=== PATIENT | female | born 1975 | race Caucasian/White ===

== ENCOUNTER 2024-05-12 20:26 | Emergency (ER) | payer MEDICAID ==
[~2024-05-12] VITALS: Ht 170.2 cm; Wt 104.3 kg
[2024-05-12 20:30] VITALS: BP_SYST 179; PULSE 75; RESP 18; O2SAT 100
[2024-05-12 21:49] LABS: BASOPHILS # (AUTO) 0.2 K/uL (0.0-0.2); EOSINOPHILS # (AUTO) 0.3 K/uL (0.0-0.4); EOSINOPHILS % (AUTO) 3.7 % (0.0-4.0); HEMATOCRIT 38.9 % (36-48); HEMOGLOBIN 13.5 g/dL (12.0-16.0); LYMPHOCYTES # (AUTO) 2.4 K/uL (1.0-5.5); LYMPHOCYTES % (AUTO) 30.7 % (20.5-51.5); MEAN CORPUSCULAR HEMOGLOBIN 32 pg (27-31); MEAN CORPUSCULAR HGB CONC 35 % (32-36); MEAN CORPUSCULAR VOLUME 91 fL (79.0-98.0); MONOCYTES # (AUTO) 0.5 K/uL (0.0-1.0); MONOCYTES % (AUTO) 6.7 % (1.7-9.3); NEUTROPHILS # (AUTO) 4.4 K/uL (1.8-7.7); NEUTROPHILS % (AUTO) 55.9 % (40.0-70.0); PLATELET COUNT (AUTO) 262 K/uL (130-430); RED BLOOD CELL COUNT(AUTO) 4.27 MIL/uL (4.2-6.2); RED CELL DISTRIBUTION WIDTH 14.5 % (9.0-15.0); WHITE BLOOD COUNT (AUTO) 7.9 K/uL (4.8-10.8)
[2024-05-12 22:01] LABS: CALCIUM 8.9 mg/dL (8.4-11.0); CREATININE 1.01 mg/dL (0.55-1.30); POTASSIUM 3.3 mmol/L (3.5-5.1)
[2024-05-12] MEDS ORDERED: ACETAMINOPHEN 500 MG TABLET PO ONE (22:45)
[2024-05-12] MEDS: MORPHINE 4 MG INJ. 4 MG/ML VIAL IVP ONE (23:09)
[2024-05-13] MEDS ORDERED: LEVO250S9 PO (00:20)
[2024-05-13 00:48] VITALS: BP_SYST 109; PULSE 59; RESP 18; TEMP 98.2; O2SAT 96
== END 2024-05-13 00:50 | disposition home or self-care (01) ==
LOC: SED 20:26
DX: R07.89 Other chest pain (principal); J18.9 Pneumonia, unspecified organism; E11.9 Type 2 diabetes mellitus without complications; Z85.72 Personal history of non-Hodgkin lymphomas; I48.91 Unspecified atrial fibrillation; Z88.1 Allergy status to other antibiotic agents; Z88.5 Allergy status to narcotic agent; Z79.2 Long term (current) use of antibiotics
CPT/HCPCS: 99285; 96374; 71045; 80048; 85025; 84484; 36415; 93005; J2270